=== PATIENT | male | born 1985 | race Caucasian/White ===

== ENCOUNTER 2018-07-12 17:11 | Emergency (ER) | payer MEDICAID ==
[2018-07-12] MEDS: ALPRAZOLAM 1 MG TAB PO (18:26)
== END 2018-07-12 19:28 | disposition home or self-care (01) ==
LOC: E/R 17:11
DX: R07.9 Chest pain, unspecified (principal); E11.9 Type 2 diabetes mellitus without complications
CPT/HCPCS: 71045; 93005; 99284-25

== ENCOUNTER 2018-07-18 20:20 | Observation (INO) | payer MEDICAID ==
[2018-07-18] MEDS: KETOROLAC 30 MG INJ IM (23:24)
[2018-07-18 23:26] LABS: ADD MAN DIFF? NO
[2018-07-18 23:33] LABS: WHITE BLOOD COUNT 8.2 10^3/ul (4.8-10.8)
[2018-07-18 23:33] LABS: BASOPHILS % 0.4 % (0.0-2.0); EOSINOPHILS # 0.1 10^3/ul (0.0-0.5); EOSINOPHILS % 0.6 % (0.0-7.0); HEMATOCRIT 43.2 % (42.0-52.0); LYMPHOCYTES # 2.9 10^3/ul (0.8-2.9); LYMPHOCYTES % 35.8 % (15.0-51.0); MEAN CORPUSCULAR HEMOGLOBIN 27.3 pg (29.0-33.0); MEAN CORPUSCULAR HGB CONC 32.4 g/dl (32.0-37.0); MEAN CORPUSCULAR VOLUME 84.4 fl (82.0-101.0); MEAN PLATELET VOLUME 10.3 fl (7.4-10.4); MONOCYTE # 0.5 10^3/ul (0.3-0.9); MONOCYTES % 5.8 % (0.0-11.0); NEUTROPHIL # 4.7 10^3/ul (1.6-7.5); NEUTROPHILS % 56.9 % (39.0-77.0); PLATELET COUNT 235 10^3/UL (140-415); RED BLOOD COUNT 5.12 10^6/ul (4.70-6.10); RED CELL DISTRIBUTION WIDTH 12.5 % (11.5-14.5)
[2018-07-18 23:56] LABS: ANION GAP 10 (5-13); BLOOD UREA NITROGEN 9 mg/dl (7-20); CALCIUM 10.4 mg/dl (8.4-10.2); CARBON DIOXIDE 25 mmol/L (21-31); CHLORIDE 105 mmol/L (97-110); CREATININE 0.62 mg/dl (0.61-1.24); Estimated GFR > 60 mL/min (>60); GLUCOSE 136 mg/dl (70-220); POTASSIUM 4.5 mmol/L (3.5-5.1); SODIUM 140 mmol/L (135-144)
[2018-07-19 00:07] LABS: TROPONIN-I < 0.012 ng/ml (0.000-0.120)
[2018-07-19] MEDS ORDERED: NACL 0.9% 3 ML SYG IV (01:30)
[2018-07-19] MEDS ORDERED: DOCUSATE SODIUM 100 MG CAP PO (01:30)
[2018-07-19] MEDS ORDERED: ONDANSETRON 4 MG INJ IV (01:30)
[2018-07-19] MEDS ORDERED: BISACODYL (EC) 5 MG TAB PO (01:30)
[2018-07-19] MEDS ORDERED: morphine 2 MG INJ IV (01:30)
[2018-07-19] MEDS ORDERED: NITROGLYCERIN (SL) 0.4 MG TAB SL (01:30)
[2018-07-19] MEDS ORDERED: ATROPINE 1 MG/10 ML SYRINGE IV (06:30)
[2018-07-19 07:19] LABS: CREATINE KINASE 32 IU/L (23-200)
[2018-07-19 07:21] LABS: CHOL/HDL RATIO 4.8 RATIO; CHOLESTEROL 121 mg/dl (100-200); HDL CHOLESTEROL 25 mg/dl (28-63); LDL CHOLESTEROL,CALCULATED 65 mg/dl; TRIGLYCERIDES 156 mg/dl (0-149)
[2018-07-19 07:21] LABS: MAGNESIUM 2.2 mg/dl (1.7-2.5)
[2018-07-19 07:32] LABS: CK INDEX 1.2; CK-MB 0.38 ng/ml (0.0-2.4); TROPONIN-I < 0.012 ng/ml (0.000-0.120)
[2018-07-19 07:46] LABS: HEMOGLOBIN A1C 9.6 % (0-5.9)
[2018-07-19] MEDS: ENOXAPARIN 40 MG/0.4 ML SYG SC (08:49)
[2018-07-19] MEDS ORDERED: DEXTROSE 50% 50 ML SYRINGE IV ×2 (11:00)
[2018-07-19] MEDS ORDERED: GLUCOSE GEL 15 GRAM TUBE PO ×2 (11:00)
[2018-07-19] MEDS ORDERED: GLUCOSE GEL 15 GRAM TUBE BUCCAL (11:00)
[2018-07-19] MEDS ORDERED: GLUCAGON 1 MG INJ IM (11:00)
[2018-07-19 11:35] LABS: CREATINE KINASE 31 IU/L (23-200)
[2018-07-19 11:46] LABS: CK INDEX 1.2; CK-MB 0.38 ng/ml (0.0-2.4); TROPONIN-I < 0.012 ng/ml (0.000-0.120)
[2018-07-19 11:48] LABS: FREE T4 (FREE THYROXINE) 1.07 ng/dl (0.79-2.35)
[2018-07-19 11:51] LABS: FREE T3 3.75 pg/ml (2.77-5.27)
[2018-07-19] MEDS: INSULIN ASPART [NOVOLOG] 3 ML PEN SC ×3 (12:10→20:57)
[2018-07-19] MEDS: IOHEXOL 100 ML (17:33)
[2018-07-19] MEDS: SOD CHLORIDE 0.9% 100 ML (17:33)
[2018-07-19] MEDS: NITROGLYCERIN AEROSOL (4.9 GM) (17:43)
[2018-07-19] MEDS: FISH OIL 1,000 MG CAP PO (20:53)
[2018-07-19] MEDS: AL HYDROX/MG HYDROX/SIMETH 30 ML CUP PO (23:33)
[2018-07-19] MEDS: PANTOPRAZOLE (EC) 40 MG TAB PO (23:33)
[2018-07-20] MEDS: ACCU-CHEK XX (02:00)
[2018-07-20] MEDS: PANTOPRAZOLE (EC) 40 MG TAB PO (06:41)
[2018-07-20] MEDS: INSULIN ASPART [NOVOLOG] 3 ML PEN SC ×2 (07:55→12:34)
[2018-07-20] MEDS: INSULIN GLARGINE [LANTus] (100 UNITS/ML) SYG SC (08:00)
[2018-07-20] MEDS: FISH OIL 1,000 MG CAP PO (08:31)
[2018-07-20] MEDS: ASPIRIN 81 MG TAB PO (08:32)
[2018-07-20 08:42] LABS: ADD MAN DIFF? NO
[2018-07-20] MEDS: ENOXAPARIN 40 MG/0.4 ML SYG SC (08:42)
[2018-07-20 08:45] LABS: BASOPHILS % 0.6 % (0.0-2.0); EOSINOPHILS # 0.1 10^3/ul (0.0-0.5); EOSINOPHILS % 1.2 % (0.0-7.0); HEMATOCRIT 41.8 % (42.0-52.0); HEMOGLOBIN 13.6 g/dl (14.0-18.0); LYMPHOCYTES # 2.7 10^3/ul (0.8-2.9); LYMPHOCYTES % 38.5 % (15.0-51.0); MEAN CORPUSCULAR HEMOGLOBIN 27.5 pg (29.0-33.0); MEAN CORPUSCULAR HGB CONC 32.5 g/dl (32.0-37.0); MEAN CORPUSCULAR VOLUME 84.6 fl (82.0-101.0); MEAN PLATELET VOLUME 10.4 fl (7.4-10.4); MONOCYTE # 0.5 10^3/ul (0.3-0.9); MONOCYTES % 6.5 % (0.0-11.0); NEUTROPHIL # 3.6 10^3/ul (1.6-7.5); NEUTROPHILS % 52.5 % (39.0-77.0); PLATELET COUNT 238 10^3/UL (140-415); RED BLOOD COUNT 4.94 10^6/ul (4.70-6.10); RED CELL DISTRIBUTION WIDTH 12.5 % (11.5-14.5)
[2018-07-20 08:45] LABS: WHITE BLOOD COUNT 6.9 10^3/ul (4.8-10.8)
[2018-07-20 09:14] LABS: ANION GAP 7 (5-13); BLOOD UREA NITROGEN 10 mg/dl (7-20); CALCIUM 10.1 mg/dl (8.4-10.2); CARBON DIOXIDE 27 mmol/L (21-31); CHLORIDE 105 mmol/L (97-110); CREATININE 0.64 mg/dl (0.61-1.24); Estimated GFR > 60 mL/min (>60); GLUCOSE 135 mg/dl (70-220); SODIUM 139 mmol/L (135-144)
[2018-07-20 18:17] LABS: PTH CALCIUM 9.9 mg/dL (8.6-10.3)
[2018-07-21 11:02] LABS: PTH INTACT 77 pg/mL (14-64)
== END 2018-07-20 18:27 | disposition home or self-care (01) ==
LOC: E/R 20:20 → TEL 07-19 01:00
DX: R07.9 Chest pain, unspecified (principal); I10 Essential (primary) hypertension; E66.01 Morbid (severe) obesity due to excess calories; Z68.43 Body mass index [BMI] 50.0-59.9, adult; E11.9 Type 2 diabetes mellitus without complications; Z79.4 Long term (current) use of insulin
CPT/HCPCS: 36415; 71045; 75574; 80048; 80061; 82306; 82550; 82553; 82962; 83036; 83735; 83970; 84439; 84443; 84481; 84484; 85025; 93005; 93306; 99285-25; G0378